=== PATIENT | female | born 1980 | race Caucasian/White ===

== ENCOUNTER 2024-02-11 10:12 | Outpatient (REF) | payer BC, SELFPAY ==
[2024-02-11 11:01] LABS: ALT 20 U/L (14-59); AST 13 U/L (15-37); Albumin 3.7 g/dL (3.4-5.0); Alkaline Phosphatase 54 U/L (46-116); Anion Gap 5.7 mmol/L (3-11); BUN 9 mg/dL (7-18); Bilirubin, Total 0.49 mg/dL (0.2-1.0); CO2 29.3 mmol/L (21.0-32.0); CREATININE 0.9 mg/dL (0.55-1.02); Calcium 8.9 mg/dL (8.5-10.1); Calculated LDL 146 mg/dL (<100); Chloride 104 mmol/L (98-107); Cholesterol 230 mg/dL (<200); Estimated GFR 80.84 (mL/min/1.73m2); Glucose 89 mg/dL (74-106); HDL Cholesterol 49 mg/dL (40-60); Sodium 139 mmol/L (136-145); Triglyceride 178 mg/dL (<150)
[2024-02-14 10:21] LABS: HIV-1/2 Ag & Ab Screen Negative (Negative)
[2024-02-14 10:31] LABS: Hepatitis C Ab w Rflx HCV PCR Negative (Negative)
== END 2024-02-11 10:13 | disposition home or self-care (01) ==
LOC: LBN 10:12
PROVIDERS: PCP Nurse Practitioner Family; Visit Provider Nurse Practitioner Family
DX: Z11.4 Encounter for screening for human immunodeficiency virus [HIV] (principal); Z13.220 Encounter for screening for lipoid disorders; Z11.59 Encounter for screening for other viral diseases
CPT/HCPCS: 80053; 80061; 86803; 87389

== ENCOUNTER 2024-11-10 11:35 | Outpatient (REF) | payer OTHER, SELFPAY ==
[2024-11-06 21:36] LABS: HCT 38.7 % (36.0-46.0); HGB 12.6 g/dL (11.2-15.7); MCH 27.6 pg (27.0-33.0); MCHC 32.6 % (32.0-36.0); MCV 85 fL (80-95); MPV 10.7 fL (8.0-11.0); Platelet Count 231 10^3/uL (130-400); RBC 4.56 10^6/uL (3.93-5.22); RDW 12.1 % (11.7-14.6); RDW-SD 37.4 fL; WBC 5.74 10^3/uL (4.4-10.8)
[2024-11-06 21:46] LABS: Iron 72 ug/dL (50-170)
[2024-11-06 22:47] LABS: Ferritin 30 ng/mL (8-252); TSH (W/Ref FT4) 3.17 uIU/mL (0.36-3.74)
== END 2024-11-10 11:36 | disposition home or self-care (01) ==
LOC: LBN 11:35
PROVIDERS: PCP Nurse Practitioner Family; Visit Provider Nurse Practitioner Family
DX: R53.83 Other fatigue (principal)
CPT/HCPCS: 85027; 82728; 83540; 84443